=== PATIENT | male | born 2000 | race American Indian/Alaskan Native ===

== ENCOUNTER 2021-07-19 00:37 | Emergency (ER) | payer BC ==
[2021-07-19 02:50] LABS: Absolute Lymphocytes (CBC) 2.4 K/uL (0.7-4.9); Basophils % 0.4 % (0-1.3); Hematocrit 40.2 % (39.6-49.0); Lymphocytes % 31.9 % (15.3-44.8); MPV 8.6 fL (7.6-11.3); RBC Red Blood Cell Count 5.23 M/uL (4.33-5.43)
[2021-07-19] MEDS ORDERED: LORazepam 2 MG/ML VIAL ONE (02:50)
[2021-07-19 02:52] LABS: Protime INR 0.96
[2021-07-19 03:04] LABS: ALT/SGPT 40 U/L (12-78); AST/SGOT 24 U/L (15-37); Albumin 3.9 g/dL (3.4-5.0); Alkaline Phosphatase 117 U/L (45-117); BUN Blood Urea Nitrogen 14 mg/dL (7-18); Bicarbonate 23 mmol/L (21-32); Bilirubin Direct < 0.1 mg/dL (0-0.2); Bilirubin Total 0.3 mg/dL (0.2-1.0); Glucose Level 101 mg/dL (74-106); Potassium 3.7 mmol/L (3.5-5.1); Protein, Total 7.2 g/dL (6.4-8.2); Sodium Level 143 mmol/L (136-145)
--- NOTE | 2021-07-19 03:07 | EDPHYS ---
Physician Documentation [facility] Name: Solo Bowen Age: 21 yrs Sex: Male : 2000 Arrival Date: 07/19/2021 Time: 00:40 Bed 5 Private MD: ED Physician Sangeetha Zaldivar HPI: 07/19 02:11 This 21 yrs old Other Male presents to ER via EMS with complaints of Psych Problem. ma2 02:11 Onset: The symptoms/episode began/occurred gradually, 1 day(s) ago. Associated signs ma2 and symptoms: Pertinent positives; Pertinent negatives: chills, depression, hallucinations, headache, shortness of breath, substance abuse, tremor. Severity of symptoms: At their worst the symptoms were moderate in the emergency department the symptoms are unchanged. The patient has not experienced similar symptoms in the past. Been having episodes of delusions, was diagnosed yesterday with bipolar 1, he has an appointment today with his psychiatrist as well. Start new medication. Patient had an episode of psychotic break where he was combative, he has not been sleeping for 2 days, he has delusions as well. He denies SI HI or visual hallucinations. Never had any health issues or mental issues. Patient is calm and cooperative at this time I spoke with the parents, they will take him home and see a psychiatrist in few hours.. Historical: - Allergies: 00:45 No Known Allergies; iw - PMHx: 00:45 None; iw - PSHx: 00:45 None; iw - Immunization history:: Client reports receiving the 2nd dose of the Covid vaccine. - Social history:: Smoking status: Patient denies any tobacco usage or history of. - Family history:: not pertinent. ROS: 02:11 Constitutional: Negative for fever, chills, and weight loss. ma2 02:11 All other systems are negative. Exam: 02:11 Constitutional: This is a well developed, well nourished patient who is awake, alert, ma2 and in no acute distress. Head/Face: Normocephalic, atraumatic. Eyes: Pupils equal round and reactive to light, extra-ocular motions intact. Lids and lashes normal. Conjunctiva and sclera are non-icteric and not injected. Cornea within normal limits. Periorbital areas with no swelling, redness, or edema. ENT: Nares patent. No nasal discharge, no septal abnormalities noted. Tympanic membranes are normal and external auditory canals are clear. Oropharynx with no redness, swelling, or masses, exudates, or evidence of obstruction, uvula midline. Mucous membranes moist. Neck: Trachea midline, no thyromegaly or masses palpated, and no cervical lymphadenopathy. Supple, full range of motion without nuchal rigidity, or vertebral point tenderness. No Meningismus. Chest/axilla: Normal chest wall appearance and motion. Nontender with no deformity. No lesions are appreciated. Cardiovascular: Regular rate and rhythm with a normal S1 and S2. No gallops, murmurs, or rubs. Normal PMI, no JVD. No pulse deficits. Respiratory: Lungs have equal breath sounds bilaterally, clear to auscultation and percussion. No rales, rhonchi or wheezes noted. No increased work of breathing, no retractions or nasal flaring. Abdomen/GI: Soft, non-tender, with normal bowel sounds. No distension or tympany. No guarding or rebound. No evidence of tenderness throughout. Back: No spinal tenderness. No costovertebral tenderness. Full range of motion. Skin: Warm, dry with normal turgor. Normal color with no rashes, no lesions, and no evidence of cellulitis. MS/ Extremity: Pulses equal, no cyanosis. Neurovascular intact. Full, normal range of motion. Neuro: Awake and alert, GCS 15, oriented to person, place, time, and situation. Cranial nerves II-XII grossly intact. Motor strength 5/5 in all extremities. Sensory grossly intact. Cerebellar exam normal. Normal gait. Psych: Awake, alert, with orientation to person, place and time. Behavior, mood, and affect are within normal limits. Patient is calm, he does have delusions, thinks he is connected spiritually with demons and angels, however he is, cooperative at this time no SI HI, or hallucinations. Parents state patient took Olga and marijuana over the last month. Vital Signs: 00:41 BP 134 / 92; Pulse 81; Resp 16; Temp 98.6; Pulse Ox 97% on R/A; iw MDM: 01:28 Patient medically screened. ma2 02:11 Differential diagnosis: drug withdrawal. acute psychotic break, depression, psychosis ma2 secondary to non-compliance. 03:05 Data reviewed: vital signs, nurses notes. Counseling: I had a detailed discussion with [facility] the patient and/or guardian regarding: the historical points, exam findings, and any diagnostic results supporting the discharge/admit diagnosis, the presence of at least one elevated blood pressure reading (>120/80) during this emergency department visit, the need for outpatient follow up. Response to treatment: the patient's symptoms have markedly improved after treatment. 07/19 00:59 Order name: Acetaminophen [facility] 07/19 00:59 Order name: Basic Metabolic Panel; Complete Time: 03:05 [facility] 07/19 00:59 Order name: CBC with Diff; Complete Time: 02:54 [facility] 07/19 00:59 Order name: ETOH Level; Complete Time: 03:05 [facility] 07/19 00:59 Order name: Hepatic Function; Complete Time: 03:05 [facility] 07/19 00:59 Order name: PT-INR; Complete Time: 02:54 [facility] 07/19 00:59 Order name: Ptt, Activated; Complete Time: 02:54 [facility] 07/19 00:59 Order name: Salicylate [facility] 07/19 00:59 Order name: EKG; Complete Time: 00:59 [facility] 07/19 00:59 Order name: EKG - Nurse/Tech; Complete Time: 02:19 [facility] 07/19 00:59 Order name: IV Saline Lock; Complete Time: 02:04 [facility] 07/19 00:59 Order name: Acetaminophen Level; Complete Time: 03:05 [facility] 07/19 00:59 Order name: Labs collected and sent; Complete Time: 02:19 [facility] 07/19 00:59 Order name: Suicide Screening ([place]); Complete Time: 02:19 [facility] Administered Medications: 02:35 Drug: Ativan (LORazepam) 1 mg Route: IVP; Site: right forearm; jb4 03:00 Follow up: Response: No adverse reaction; Marked relief of symptoms jb4 Disposition Summary: 07/19/21 03:06 Discharge Ordered Location: Home ks2 Condition: Stable ma2 Diagnosis - Bipolar disorder, current episode hypomanic - with psychotic feature ma2 Followup: ma2 - With: Private Physician - When: Tomorrow - Reason: Continuance of care Discharge Instructions: - Discharge Summary Sheet ma2 - Bipolar 1 Disorder ma2 - Mia ma2 Forms: - Medication Reconciliation Form ma2 - Thank You Letter ma2 - Antibiotic Education ma2 - Prescription Opioid Use ma2 Signatures: Dispatcher [employer] Cassidy Shaw RN RN iw Bryson, James, RN RN jb4 Sangeetha Zaldivar MD MD ma2 Corrections: (The following items were deleted from the chart) 00:45 00:45 PSHx: None; vishnu mares 03:51 00:59 Urine Dipstick-Ancillary ordered. ma2 jb4
--- NOTE | 2021-07-19 03:07 | ER ---
Nurse's Notes [facility] Name: Solo Bowen Age: 21 yrs Sex: Male : 2000 Arrival Date: 07/19/2021 Time: 00:40 Bed 5 Private MD: Diagnosis: Bipolar disorder, current episode hypomanic-with psychotic feature Presentation: 07/19 00:41 Chief complaint: EMS states: pt was recently diagnosed with bipolar disorder, was iw supposed to start Prozac and another medication but he does not remember the name of it, he became combative at home , was acting aggressively, "tapping the fletcher" but has been cooperative en route to ER. Coronavirus screen: At this time, the client does not indicate any symptoms associated with coronavirus-19. Ebola Screen: Patient negative for fever greater than or equal to 101.5 degrees Fahrenheit, and additional compatible Ebola Virus Disease symptoms Patient denies exposure to infectious person. Patient denies travel to an Ebola-affected area in the 21 days before illness onset. No symptoms or risks identified at this time. Initial Sepsis Screen: Does the patient meet any 2 criteria? No. Patient's initial sepsis screen is negative. Does the patient have a suspected source of infection? No. Patient's initial sepsis screen is negative. Risk Assessment: Do you want to hurt yourself or someone else? Patient reports no desire to harm self or others. Onset of symptoms was July 19, 2021. 00:41 Method Of Arrival: EMS: [facility] iw 00:41 Acuity: CYN 3 iw Historical: - Allergies: 00:45 No Known Allergies; iw - PMHx: 00:45 None; iw - PSHx: 00:45 None; iw - Immunization history:: Client reports receiving the 2nd dose of the Covid vaccine. - Social history:: Smoking status: Patient denies any tobacco usage or history of. - Family history:: not pertinent. Screenin:30 Abuse screen: Denies threats or abuse. Nutritional screening: No deficits noted. jb4 Tuberculosis screening: No symptoms or risk factors identified. Fall Risk None identified. Assessment: 01:30 General: Appears in no apparent distress. comfortable, Behavior is cooperative, jb4 restless, manic. Pain: Denies pain. Neuro: Level of Consciousness is awake, alert, obeys commands, Oriented to person, place, time, situation. Cardiovascular: Patient's skin is warm and dry. Respiratory: Airway is patent Respiratory effort is even, unlabored, Respiratory pattern is regular, symmetrical. GI: No signs and/or symptoms were reported involving the gastrointestinal system. : No signs and/or symptoms were reported regarding the genitourinary system. EENT: No signs and/or symptoms were reported regarding the EENT system. Derm: Skin is intact, Skin is pink, warm \\T\\ dry. Musculoskeletal: Circulation, motion, and sensation intact. Range of motion: intact in all extremities. 03:49 Reassessment: Patient appears in no apparent distress at this time. Patient and/or jb4 family updated on plan of care and expected duration. Pain level reassessed. Patient is alert, oriented x 3, equal unlabored respirations, skin warm/dry/pink. Psych: 03:51 [place] Suicide Severity Screening: In the past month, have you wished you were jb4 or wished you could go to sleep and not wake up? Patient responds "No." "In the past month, have you actually had any thoughts of killing yourself?" Patient responds "no." "In your lifetime, have you ever done anything, started to do anything, or prepared to do anything to end your life?" Patient responds "no.". Subjective: Patient's mood is elevated. Objective: Patient is cooperative. Safety Checks: Personal items have not been removed. Door is closed to patient's room. No visitors are present at this time. Pt denies substance abuse. Vital Signs: 00:41 BP 134 / 92; Pulse 81; Resp 16; Temp 98.6; Pulse Ox 97% on R/A; iw ED Course: 00:40 Patient arrived in ED. iw 00:44 Triage completed. iw 00:45 Arm band placed on. iw 01:17 Quique James RN is Primary Nurse. jb4 01:28 Sangeetha Zaldivar MD is Attending Physician. ma2 01:30 Patient has correct armband on for positive identification. Bed in low position. Call jb4 light in reach. Side rails up X 1. 02:00 Inserted saline lock: 22 gauge in right forearm, using aseptic technique. Blood ds4 collected. 03:50 No provider procedures requiring assistance completed. IV discontinued, intact, jb4 bleeding controlled, No redness/swelling at site. Pressure dressing applied. Administered Medications: 02:35 Drug: Ativan (LORazepam) 1 mg Route: IVP; Site: right forearm; jb4 03:00 Follow up: Response: No adverse reaction; Marked relief of symptoms jb4 Outcome: 03:06 Discharge ordered by MD. pardo 03:50 Discharged to home via wheelchair, with family. jb4 03:50 Condition: stable 03:50 Discharge instructions given to family, Instructed on discharge instructions, follow up and referral plans. Demonstrated understanding of instructions, follow-up care. 03:52 Patient left the ED. jb4 Signatures: Cassidy Lloyd RN RN iw Angel Luis Roman ds4 Quique James RN RN jb4 Sangeetha Zaldivar MD MD ma2 Corrections: (The following items were deleted from the chart) 00:45 00:45 PSHx: None; vishnu mares
[2021-07-19 03:59] VITALS: BP 134/92; TEMP 98.6; O2SAT 97
== END 2021-07-19 03:52 | disposition home or self-care (01) ==
LOC: ER 00:37
DX: F31.0 Bipolar disorder, current episode hypomanic (principal)
CPT/HCPCS: 36415; 80048; 80076; 80320; 80329; 85025; 85610; 85730; 93005; 96374; 99284